=== PATIENT | female | born 1970 | race Caucasian/White ===

== ENCOUNTER 2017-08-22 20:24 | Emergency (ER) | payer SELFPAY ==
[~2017-08-22] VITALS: Ht 175.3 cm; Wt 122.9 kg
[2017-08-22 22:57] VITALS: BP 128/86
== END 2017-08-22 23:18 | disposition home or self-care (01) ==
LOC: ER 22:16
DX: J20.9 Acute bronchitis, unspecified (principal)
CPT/HCPCS: 99283